=== PATIENT | male | born 1995 ===

== ENCOUNTER 2016-10-14 20:14 | Emergency (ER) | payer OTHER ==
[2016-10-14 20:15] VITALS: BMI 25.4
[2016-10-14 20:37] VITALS: TEMP 97.9
--- NOTE | 2016-10-14 20:58 | ED PDOC ---
Arrival/HPI - General Chief Complaint: Dizziness/Lightheaded Time Seen by Provider: 10/14/16 20:38 - History of Present Illness Narrative History of Present Illness (Text): 10/14/16 20:59 20 y/o M w/ Hx of panic attacks presents to the ED c/o feeling "hazed and dazed " since yesterday. Pt was at [facility] 2 days (Monday) and reports sun exposure x10hrs. After returning home pt reports feeling not himself. Pt denies dizziness or lightheadedness but says his head is foggy. Pt also reports glassy eyes. Pt has seasonal allergies for which he was prescribed Cetirizine last year. Pt denies F/C, rhinorrhea, CP, SOB, N/V, D/C, weakness, numbness/ tingling. (Lindy Velazquez) Past Medical History - Provider Review Nursing Documentation Reviewed: Yes - Psychiatric Hx Substance Use: No Family/Social History - Physician Review Nursing Documentation Reviewed: Yes Family/Social History: No Known Family HX Smoking Status: no Hx Alcohol Use: No Hx Substance Use: No Allergies/Home Meds Allergies/Adverse Reactions: Allergies No Known Allergies Allergy (Verified 12/27/15 00:33) Review of Systems - Physician Review All systems were reviewed & negative as marked: Yes - Review of Systems Constitutional: absent: Fevers Cardiovascular: absent: Chest Pain Physical Exam Vital Signs Reviewed: Yes Temperature: Afebrile Blood Pressure: Hypertensive Pulse: Tachycardic Respiratory Rate: Normal Appearance: Positive for: Well-Appearing Pain Distress: None Mental Status: Positive for: Alert and Oriented X 3 - Systems Exam Head: Present: Atraumatic, Normocephalic Pupils: Present: PERRL Extroacular Muscles: Present: EOMI Conjunctiva: Present: Normal Mouth: Present: Moist Mucous Membranes Neck: Present: Normal Range of Motion Respiratory/Chest: Present: Clear to Auscultation, Good Air Exchange. No: Respiratory Distress, Accessory Muscle Use Cardiovascular: Present: Regular Rate and Rhythm, Normal S1, S2. No: Murmurs Abdomen: No: Tenderness, Distention Upper Extremity: Present: Normal Inspection. No: Cyanosis, Edema Lower Extremity: Present: Normal Inspection. No: Edema Neurological: Present: GCS=15, Speech Normal, Gait Normal, Other (no focal neurological deficits) Skin: Present: Warm, Normal Color Psychiatric: Present: Alert, Oriented x 3, Normal Affect, Normal Mood Vital Signs Temp Pulse Resp BP Pulse Ox 10/14/16 23:30 76 16 134/62 98 10/14/16 20:31 97.9 F 88 98 H 168/92 H 100 Medical Decision Making ED Course and Treatment: Patient seen and examined with resident. Came up with treatment and disposition plan with resident. (Nabor Mcghee) 10/14/16 21:08 20 y/o M c/o feeling dazed - CBC, CMP, CPK - NS Bolus - recheck vitals - reassess and dispo 10/14/16 21:53 BP improving. Pt reports improvement in symptoms. 10/14/16 23:21 BP improved. Pt feels much better; all symptoms resolved. Discussed need for increased fluid intake and restarting allergy medications. Pt instructed to f/u w/ PMD w/in 1wk. (Lindy Velazquez) - Lab Interpretations Lab Results: 10/14/16 22:20 10/14/16 22:20 Lab Results 10/14/16 22:20: Urine Color Light yellow, Urine Appearance Clear, Urine pH 6.5, Ur Specific Chloe <= 1.005, Urine Protein Negative, Urine Glucose (UA) Negative, Urine Ketones Negative, Urine Blood Negative, Urine Nitrate Negative, Urine Bilirubin Negative, Urine Urobilinogen 0.2, Ur Leukocyte Esterase Negative 10/14/16 22:20: Sodium 140, Potassium 3.8, Chloride 102, Carbon Dioxide 28, Anion Gap 14, BUN 12, Creatinine 0.9, Est GFR ( Amer) > 60, Est GFR (Non- Af Amer) > 60, Random Glucose 106, Calcium 9.8, Total Bilirubin 0.7, AST 45, ALT 62 H, Alkaline Phosphatase 90, Total Creatine Kinase 83, Total Protein 7.7, Albumin 4.6, Globulin 3.1, Albumin/Globulin Ratio 1.5 10/14/16 22:20: WBC 13.5 H, RBC 4.88, Hgb 15.1, Hct 42.7, MCV 87.5, MCH 30.9, MCHC 35.4, RDW 12.5, Plt Count 274, MPV 10.9, Gran % 76.4 H, Lymph % (Auto) 16.6 L, [place] % (Auto) 5.8, Eos % (Auto) 1.1 L, Baso % (Auto) 0.1, Gran # 10.32 H , Lymph # 2.3, [place] # 0.8 H, Eos # 0.2, Baso # 0.02 - Medication Orders Current Medication Orders: Discontinued Medications Sodium Chloride (Sodium Chloride 0.9%) 1,000 mls @ 999 mls/hr IV .Q1H1M STA Stop: 10/14/16 21:59 Disposition/Present on Arrival - Present on Arrival Any Indicators Present on Arrival: No History of DVT/PE: No History of Uncontrolled Diabetes: No Urinary Catheter: No History of Decub. Ulcer: No History Surgical Site Infection Following: None - Disposition Have Diagnosis and Disposition been Completed?: Yes Disposition Time: 23:26 Patient Plan: Discharge - Disposition Diagnosis: Dehydration, mild Disposition: HOME/ ROUTINE Condition: STABLE Discharge Instructions (ExitCare): Dehydration (ED), Allergic Rhinitis (ED), Allergies (ED) Additional Instructions: Follow up with your primary doctor within 1week Take over the counter allergy medications as needed Drink plenty of water Return to the ED if any new or concerning symptoms develop. Forms: WORK NOTE
[2016-10-14] MEDS ORDERED: Sodium Chloride 0.9% 1,000 ML IV STA (20:59)
[2016-10-14 22:33] LABS: ADD MANUAL DIFF? NO
[2016-10-14 22:44] LABS: PH,URINE 6.5 (4.7-8.0); URINE APPEARANCE CLEAR (CLEAR); URINE BILIRUBIN NEGATIVE (NEGATIVE); URINE BLOOD NEGATIVE (NEGATIVE); URINE COLOR LIGHT YELLOW (YELLOW); URINE GLUCOSE (UA) NEGATIVE (NEGATIVE); URINE KETONE NEGATIVE (NEGATIVE); URINE LEUKOCYTE ESTERASE NEGATIVE Leu/uL (NEGATIVE); URINE PROTEIN NEGATIVE mg/dL (<30 mg/dL); URINE UROBILINOGEN 0.2 E.U./dL (<1 E.U./dL)
[2016-10-14 22:53] LABS: ALB/GLOB RATIO 1.5 (1.1-1.8); ALKALINE PHOSPHATASE 90 U/L (38-133); ALT/SGPT 62 U/L (7-56); AST/SGOT 45 U/L (15-59); BILIRUBIN,TOTAL 0.7 mg/dL (0.2-1.3); BLOOD UREA NITROGEN 12 mg/dL (7-21); CALCIUM 9.8 mg/dL (8.4-10.5); CARBON DIOXIDE 28 mmol/L (21-33); CHLORIDE 102 mmol/L (95-110); GFR AFRICAN-AMERICAN > 60; GLUCOSE,RANDOM 106 mg/dL (70-110); SODIUM 140 mmol/L (132-148); TOTAL PROTEIN 7.7 g/dL (5.8-8.3)
[2016-10-14 22:54] LABS: POTASSIUM 3.8 mmol/L (3.6-5.0)
[2016-10-14 23:05] LABS: BASO # 0.02 K/mm3 (0.0-2.0); BASO % 0.1 % (0.0-3.0); EOS # 0.2 (0.0-0.7); EOS % 1.1 % (1.5-5.0); GRAN # 10.32 (1.4-6.5); GRAN % 76.4 % (50.0-68.0); HEMATOCRIT 42.7 % (42.0-52.0); LYMPH # 2.3 (1.2-3.4); LYMPH % 16.6 % (22.0-35.0); MEAN CELL VOLUME 87.5 fL (80.0-105.0); MEAN CORPUSCULAR HEMOGLOBIN 30.9 pg (25.0-35.0); MEAN CORPUSCULAR HGB CONC 35.4 g/dl (31.0-37.0); MEAN PLATELET VOLUME 10.9 fl (7.0-11.0); MONO # 0.8 (0.1-0.6); MONO % 5.8 % (1.0-6.0); PLATELET COUNT 274 10^3/uL (120.0-450.0); RED CELL DISTRIBUTION WIDTH 12.5 % (11.5-14.5); WHITE BLOOD COUNT 13.5 10^3/ul (4.5-11.0)
[2016-10-14 23:31] VITALS: BP 134/62; PULSE 76; RESP 16; O2SAT 98
== END 2016-10-14 23:50 | disposition home or self-care (01) ==
LOC: ED 20:14
DX: E86.0 Dehydration (principal)

== ENCOUNTER 2016-10-15 13:03 | Emergency (ER) | payer OTHER ==
[2016-10-15 13:04] VITALS: BMI 25.4
[2016-10-15 13:13] VITALS: TEMP 99; O2SAT 98
[2016-10-15] MEDS ORDERED: Sodium Chloride 0.9% 1,000 ML IV STA (13:39)
--- NOTE | 2016-10-15 13:40 | ED PDOC ---
Arrival/HPI - General Historian: Patient, Family (mom) - History of Present Illness Time/Duration: Other (4 days) Symptom Onset: Gradual Symptom Course: Worsening Context: Home, Work - General Chief Complaint: Weakness/Neurological Deficit Time Seen by Provider: 10/15/16 13:13 - History of Present Illness Narrative History of Present Illness (Text): 10/15/16 13:41 Patient is a 20 y/o with no significant pmh presenting with feeling doomed, sick and anxious. Patient states since [place] when he came from park and spending a lot of time in the sun, he started to feel hazed. Patient was in the ED yesterday, he said when he got home he continued to experience the haziness. Patient states when he woke up this AM, he was having hard time getting out of bed, he felt anxious, and his heart was racing. Patient states when he got to work, the symptoms continues, he felt sob, tightness in the right side of his chest, and palpitations. Patient denies illicit drug use. 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 As per patient's mom, patient has been feeling anxious, and afraid of being home by himself. Patient denies suicidal or homicidal ideation. (Mary Lou Taylor) Past Medical History - Provider Review Nursing Documentation Reviewed: Yes - Travel History Have you recently traveled outside [place] w/in the past 3 mons?: No - Psychiatric Hx Substance Use: No Family/Social History - Physician Review Nursing Documentation Reviewed: Yes Family/Social History: No Known Family HX Smoking Status: Never Smoked Hx Alcohol Use: Yes Frequency of alcohol use: Socially Hx Substance Use: No Allergies/Home Meds Allergies/Adverse Reactions: Allergies No Known Allergies Allergy (Verified 12/27/15 00:33) Home Medications: Home Meds Medication Instructions Recorded Confirmed No Known Home Med 10/15/16 10/15/16 Review of Systems - Review of Systems Constitutional: Normal Eyes: Normal ENT: Normal Respiratory: SOB. absent: Cough, Sputum, Wheezing Cardiovascular: Chest Pain (on the right ), Palpitations. absent: Edema, Calf Pain, Orthopnea, Syncope Gastrointestinal: Normal Genitourinary Male: Normal Musculoskeletal: Normal Skin: Normal Neurological: Normal Endocrine: Normal Hemo/Lymphatic: Normal Psychiatric: Anxiety, Depression. absent: Suicidal Ideation Physical Exam Vital Signs Reviewed: Yes Temperature: Afebrile Blood Pressure: Hypertensive Pulse: Tachycardic Respiratory Rate: Normal Appearance: Positive for: Well-Appearing, Non-Toxic, Comfortable Pain Distress: None Mental Status: Positive for: Alert and Oriented X 3 - Systems Exam Head: Present: Atraumatic, Normocephalic Conjunctiva: No: Icteric Mouth: Present: Moist Mucous Membranes Neck: Present: Normal Range of Motion Respiratory/Chest: Present: Clear to Auscultation, Good Air Exchange. No: Respiratory Distress, Accessory Muscle Use Cardiovascular: Present: Regular Rate and Rhythm, Normal S1, S2, Tachycardic. No: Murmurs, Irregular Rhythm, Bradycardic, Rub, Gallop Abdomen: Present: Normal Bowel Sounds. No: Tenderness, Distention, Rebound, Guarding Upper Extremity: Present: Normal Inspection. No: Cyanosis, Edema Lower Extremity: Present: Normal Inspection. 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 Patient was seen and evaluated with resident, came up with plan and treatment together. (Bairon Duffy) 10/15/16 13:51 Patient is a 20 y/o with no PMH presenting with right sided chest pain, sob, palpitations, and anxiety. Differentials: anxiety versus PE. r/o rhabdo, no WPW on ekg. Plan: CBC, CMP, CPK, D-DIMER, ALCOHOL, DRUG SCREE, PT/PTT, TSH, UA CHEST X-RAY, EKG, 1 L NS BOLUS. Patient seen,examined, and case discussed with Dr Duffy. 10/15/16 15:29 All labs were normal, normal d-dimer and cpk. Normal chest x-ray and ekg. Patient to be discharged to follow up with PMD ( [facility]). (Mary Lou Taylor) - Lab Interpretations Lab Results: 10/15/16 14:00 10/15/16 14:00 Lab Results 10/15/16 14:00: TSH 3rd Generation 1.61 10/15/16 14:00: Alcohol, Quantitative < 10 10/15/16 14:00: Sodium 140, Potassium 3.4 L, Chloride 102, Carbon Dioxide 26, Anion Gap 15, BUN 10, Creatinine 0.9, Est GFR ( Amer) > 60, Est GFR (Non- Af Amer) > 60, Random Glucose 124 H, Calcium 10.0, Total Bilirubin 1.0, AST 35, ALT 61 H, Alkaline Phosphatase 91, Total Creatine Kinase 86, Total Protein 8.1, Albumin 4.7, Globulin 3.4, Albumin/Globulin Ratio 1.4 10/15/16 14:00: PT 11.1, INR 1.03, APTT 27.0, D-Dimer, Quantitative 0.19 10/15/16 14:00: WBC 11.8 H, RBC 5.10, Hgb 15.7, Hct 44.4, MCV 87.1, MCH 30.8, MCHC 35.4, RDW 12.5, Plt Count 267, MPV 10.4, Gran % 76.3 H, Lymph % (Auto) 16.4 L, [place] % (Auto) 6.2 H, Eos % (Auto) 0.8 L, Baso % (Auto) 0.3, Gran # 9.03 H, Lymph # 1.9, [place] # 0.7 H, Eos # 0.1, Baso # 0.03 10/15/16 14:00: Urine Opiates Screen Negative, Urine Methadone Screen Negative, Ur Barbiturates Screen Negative, Ur Phencyclidine Scrn Negative, Ur Amphetamines Screen Negative, U Benzodiazepines Scrn Negative, U Oth Cocaine Metabols Negative, U Cannabinoids Screen Negative - RAD Interpretation Narrative RAD Interpretations (Text): 10/15/16 15:34 Normal chest x-ray. (Mary Lou Taylor) Radiology Orders: 10/15/16 13:38 CHEST PORTABLE [RAD] Stat - EKG Interpretation EKG Interpretation (Text): 10/15/16 13:54 NSR at HR of 82 bmp normal axis no prolonged MN and QRS interval Non pathologic Q waves on leads II, III, and AVF. (Mary Lou Taylor) - Medication Orders Current Medication Orders: Discontinued Medications Sodium Chloride (Sodium Chloride 0.9%) 1,000 mls @ 999 mls/hr IV .Q1H1M STA Stop: 10/15/16 14:39 Last Admin: 10/15/16 14:05 Dose: 999 mls/hr Potassium Chloride (K-Dur 20 Meq Er Tab) 40 meq PO STAT STA Stop: 10/15/16 14:33 Last Admin: 10/15/16 15:06 Dose: 40 meq Disposition/Present on Arrival - Present on Arrival Any Indicators Present on Arrival: No History of DVT/PE: No History of Uncontrolled Diabetes: No Urinary Catheter: No History of Decub. Ulcer: No History Surgical Site Infection Following: None - Disposition Have Diagnosis and Disposition been Completed?: Yes Disposition Time: 15:35 Patient Plan: Discharge - Disposition Diagnosis: Palpitation, Weakness Disposition: HOME/ ROUTINE Condition: STABLE Discharge Instructions (ExitCare): Weakness (ED) Additional Instructions: Please follow up with your primary care doctor. Go to the nearest emergency room if you the symptoms worsens or if you have other symptoms. Referrals: LessonFacezeinab Church, [Primary Care Provider] - Follow up with primary [facility] [Outside] - Follow up with primary Forms: WORK NOTE
[2016-10-15 14:15] LABS: ADD MANUAL DIFF? NO
--- NOTE | 2016-10-15 14:16 | RAD ---
HISTORY: sob COMPARISON: No prior. FINDINGS: LUNGS: No active pulmonary disease. PLEURA: No significant pleural effusion identified, no pneumothorax apparent. CARDIOVASCULAR: Normal. OSSEOUS STRUCTURES: No significant abnormalities. VISUALIZED UPPER ABDOMEN: Normal. OTHER FINDINGS: None. IMPRESSION: No active disease.
[2016-10-15 14:19] LABS: BASO # 0.03 K/mm3 (0.0-2.0); BASO % 0.3 % (0.0-3.0); EOS # 0.1 (0.0-0.7); EOS % 0.8 % (1.5-5.0); GRAN # 9.03 (1.4-6.5); GRAN % 76.3 % (50.0-68.0); HEMATOCRIT 44.4 % (42.0-52.0); LYMPH # 1.9 (1.2-3.4); LYMPH % 16.4 % (22.0-35.0); MEAN CELL VOLUME 87.1 fL (80.0-105.0); MEAN CORPUSCULAR HEMOGLOBIN 30.8 pg (25.0-35.0); MEAN CORPUSCULAR HGB CONC 35.4 g/dl (31.0-37.0); MEAN PLATELET VOLUME 10.4 fl (7.0-11.0); MONO # 0.7 (0.1-0.6); MONO % 6.2 % (1.0-6.0); PLATELET COUNT 267 10^3/uL (120.0-450.0); RED CELL DISTRIBUTION WIDTH 12.5 % (11.5-14.5); WHITE BLOOD COUNT 11.8 10^3/ul (4.5-11.0)
[2016-10-15 14:29] LABS: INR 1.03 (0.93-1.08)
[2016-10-15 14:30] LABS: ALB/GLOB RATIO 1.4 (1.1-1.8); ALKALINE PHOSPHATASE 91 U/L (38-133); ALT/SGPT 61 U/L (7-56); AST/SGOT 35 U/L (15-59); BLOOD UREA NITROGEN 10 mg/dL (7-21); CARBON DIOXIDE 26 mmol/L (21-33); CHLORIDE 102 mmol/L (98-107); GFR AFRICAN-AMERICAN > 60; GLUCOSE,RANDOM 124 mg/dL (70-110); POTASSIUM 3.4 mmol/L (3.6-5.0); SODIUM 140 mmol/L (132-148); TOTAL PROTEIN 8.1 g/dL (5.8-8.3)
[2016-10-15] MEDS ORDERED: Potassium Chloride 20 mEq ER Tab PO STA (14:32)
[2016-10-15 14:38] LABS: D DIMER 0.19 mg/L FEU (0-0.50)
[2016-10-15 15:29] VITALS: BP 155/71; PULSE 89; RESP 18
--- NOTE | 2016-10-17 01:27 | CARD ---
APPROVED REPORT EKG Measurement Heart [id number] <Conclusion> Poor data quality, interpretation may be adversely affected Normal sinus rhythm with sinus arrhythmia Normal ECG
== END 2016-10-15 15:46 | disposition home or self-care (01) ==
LOC: ED 13:03
DX: R00.2 Palpitations (principal); R53.1 Weakness
CPT/HCPCS: 71010; 80053; 80320; 80324; 80345; 80346; 80349; 80353; 80358; 80361; 82550; 83992; 84443; 85025; 85378; 85610; 85730; 93005; 96360; 99283; J7040

== ENCOUNTER 2016-10-29 15:57 | Emergency (ER) | payer OTHER ==
[2016-10-29 15:57] VITALS: BMI 25.4
[2016-10-29 16:08] VITALS: RESP 18; TEMP 98.2
--- NOTE | 2016-10-29 16:13 | ED PDOC ---
Arrival/HPI - General Chief Complaint: Palpitations Time Seen by Provider: 10/29/16 15:58 Historian: Patient - History of Present Illness Narrative History of Present Illness (Text): 10/29/16 16:07 20 year old male presents to the emergency department with palpitations and dizziness while at work today. Patient he has had similar symptoms and was evaluated in the ER but has not seen a PMD because he just started his job and "does not want to miss work." He states symptoms have improved since onset. Denies chest pain. No fever, headache, or vision changes. No suicidal ideation or depression. Time/Duration: Prior to Arrival Symptom Onset: Sudden Symptom Course: Improving Modifying Factors (Text): None Past Medical History - Provider Review Nursing Documentation Reviewed: Yes - Infectious Disease Hx of Infectious Diseases: None - Cardiac Hx Heart Murmur: Yes - Psychiatric Hx Anxiety: Yes Hx Substance Use: No - Anesthesia Hx Anesthesia: No Hx Anesthesia Reactions: No Hx Malignant Hyperthermia: No Family/Social History - Physician Review Nursing Documentation Reviewed: Yes Family/Social History: Unknown Family HX Smoking Status: Never Smoked Hx Alcohol Use: Yes Frequency of alcohol use: Socially Hx Substance Use: No Allergies/Home Meds Allergies/Adverse Reactions: Allergies No Known Allergies Allergy (Verified 10/29/16 16:02) Home Medications: Home Meds Medication Instructions Recorded Confirmed No Known Home Med 10/15/16 10/29/16 Review of Systems - Physician Review All systems were reviewed & negative as marked: Yes - Review of Systems Eyes: absent: Vision Changes Respiratory: absent: SOB Cardiovascular: Palpitations. absent: Chest Pain Gastrointestinal: absent: Abdominal Pain Musculoskeletal: absent: Back Pain Skin: absent: Rash Neurological: Dizziness. absent: Headache Psychiatric: absent: Depression, Suicidal Ideation Physical Exam Vital Signs Reviewed: Yes Vital Signs Temp Pulse Resp BP Pulse Ox 10/29/16 16:25 89 18 133/66 100 10/29/16 16:06 98.2 F 98 H 18 121/68 99 10/29/16 15:59 97.6 F 94 H 20 150/79 99 Temperature: Afebrile Blood Pressure: Normal Pulse: Regular Respiratory Rate: Normal Appearance: Positive for: Well-Appearing, Non-Toxic, Comfortable Pain Distress: None Mental Status: Positive for: Alert and Oriented X 3 - Systems Exam Head: Present: Atraumatic, Normocephalic Pupils: Present: PERRL Conjunctiva: Present: Normal Mouth: Present: Moist Mucous Membranes Pharnyx: Present: Normal. No: ERYTHEMA, EXUDATE Neck: Present: Normal Range of Motion Respiratory/Chest: Present: Clear to Auscultation, Good Air Exchange. No: Respiratory Distress, Accessory Muscle Use Cardiovascular: Present: Regular Rate and Rhythm, Murmurs (Grade I-II AYAN), Normal S1, S2 Abdomen: Present: Normal Bowel Sounds. No: Tenderness, Distention, Peritoneal Signs Back: Present: Normal Inspection Upper Extremity: Present: Normal Inspection. No: Cyanosis, Edema Lower Extremity: Present: Normal Inspection. No: Edema Neurological: Present: GCS=15, CN II-XII Intact, Speech Normal Skin: Present: Warm, Dry, Normal Color. No: Rashes Psychiatric: Present: Alert, Oriented x 3, Normal Insight, Normal Concentration Medical Decision Making ED Course and Treatment: 10/29/16 16:19 Patient with noted history with recurrent visit for same. EKG is normal; recent visits reviewed. Labs during last visit unremarkable, including normal d -dimer and TSH. Patient's symptoms are more likely due to anxiety. Discussed follow up with him further and his mother, who said they will follow up with this week. - EKG Interpretation EKG Interpretation (Text): EKG shows NSR at 98 BPM with normal axis, normal intervals, no ST changes. Interpreted by me. Interpreted by ED Physician: Yes Type: 12 lead EKG - Scribe Statement The provider has reviewed the documentation as recorded by the Nikolas Calderon Provider Scribe Attestation: All medical record entries made by the Nikolas were at my direction and personally dictated by me. I have reviewed the chart and agree that the record accurately reflects my personal performance of the history, physical exam, medical decision making, and the department course for this patient. I have also personally directed, reviewed, and agree with the discharge instructions and disposition. Disposition/Present on Arrival - Present on Arrival Any Indicators Present on Arrival: No History of DVT/PE: No History of Uncontrolled Diabetes: No Urinary Catheter: No History of Decub. Ulcer: No History Surgical Site Infection Following: None - Disposition Have Diagnosis and Disposition been Completed?: Yes Diagnosis: Anxiety Disposition: HOME/ ROUTINE Disposition Time: 16:17 Patient Plan: Discharge Condition: GOOD Discharge Instructions (ExitCare): Stress (ED), Anxiety (ED), Panic Attack (ED) Additional Instructions: Follow up with psychiatry and/or primary care. Return to the emergency department if any new concerning symptoms. Referrals: Yolette Quezada MD [Primary Care Provider] - Follow up with primary
[2016-10-29 16:25] VITALS: BP 133/66; PULSE 89; O2SAT 100
--- NOTE | 2016-10-30 09:05 | CARD ---
APPROVED REPORT EKG Measurement Heart [id number] <Conclusion> Normal sinus rhythm LVH by voltage criteria, possibly a normal variant No change
== END 2016-10-29 16:25 | disposition home or self-care (01) ==
LOC: ED 15:57
DX: F41.9 Anxiety disorder, unspecified (principal)